=== PATIENT | male | born 1940 | race American Indian/Alaskan Native ===

== ENCOUNTER 2016-11-26 09:55 | Outpatient (CLI) | payer MEDICARE ==
--- NOTE | 2016-11-26 11:11 | XRay Report ---
ROUTINE CHEST, TWO VIEWS: HISTORY: Wheezing. Previous CABG changes are noted. The trachea, heart, mediastinal contour, lung mcarthur and bony thorax are unremarkable. IMPRESSION: Unremarkable chest x-ray.
== END 2016-11-26 09:56 | disposition home or self-care (01) ==
LOC: SPVIMAG 09:55
DX: R06.2 Wheezing (principal); Z95.1 Presence of aortocoronary bypass graft
CPT/HCPCS: 71020

== ENCOUNTER 2019-02-05 07:38 | Day surgery (SDC) | payer MEDICARE ==
[2019-02-05 08:33] LABS: Basophils % (Auto) 0.8 % (0.0-1.8); Eosinophils # (Auto) 0.1 K/mm3 (0.0-0.4); Eosinophils % (Auto) 2.8 % (0.0-4.3); Hematocrit 28.9 % (35.5-45.6); Lymphocytes # (Auto) 0.9 K/mm3 (1.2-5.4); Lymphocytes % (Auto) 17.7 % (13.4-35.0); Mean Corpuscular HGB Conc 31 % (32-34); Mean Corpuscular Volume 78 fl (84-94); Monocytes # (Auto) 0.5 K/mm3 (0.0-0.8); Monocytes % (Auto) 10.7 % (0.0-7.3); Platelet Count 200 K/mm3 (140-440); Red Blood Count 3.69 M/mm3 (3.65-5.03); Red Cell Distribution Width 17.1 % (13.2-15.2)
[2019-02-05 08:44] LABS: Calcium 8.8 mg/dL (8.4-10.2)
[2019-02-05] MEDS ORDERED: NACL 0.9% 500 ML 500 ML IV SCH (09:00)
[2019-02-05] MEDS ORDERED: HEPARIN/NS 5000 UNIT/500ML(CATH LAB) 1,000 ML IR ONE (09:43)
[2019-02-05] MEDS ORDERED: CALAN ONE (09:43)
[2019-02-05] MEDS ORDERED: NITROGLYCERIN SYRINGE 0 ML ONE (09:43)
[2019-02-05] MEDS ORDERED: HEPARIN 10,000 UNITS/10 ML ONE (09:43)
[2019-02-05] MEDS: VERSED ONE ×3 (10:15→10:28)
[2019-02-05] MEDS: SUBLIMAZE ONE ×2 (10:15→10:24)
[2019-02-05] MEDS: XYLOCAINE 2% INFILTRATI ONE ×2 (10:15→10:28)
[2019-02-05] MEDS ORDERED: APRESOLINE ONE (10:53)
[2019-02-05] MEDS ORDERED: NACL 0.9% 1000 ML 1,000 ML ONE (11:11)
--- NOTE | 2019-02-05 11:47 | Short Stay Summary ---
Short Stay Documentation Date of service: 02/05/19 - History H&P: obtained from office - Allergies and Medications Current Medications: Allergies No Known Allergies Allergy (Verified 02/05/19 08:04) Home Medications Medication Instructions Recorded Confirmed Last Taken Type Atorvastatin [Lipitor] 40 mg PO DAILY 02/05/19 02/05/19 02/04/19 History 40mg Cilostazol [Pletal] 100 mg PO BID 02/05/19 02/05/19 02/04/19 History 100mg Clopidogrel [Plavix] 75 mg PO DAILY 02/05/19 02/05/19 02/04/19 History 75mg Furosemide [Lasix TAB] 20 mg PO DAILY 02/05/19 02/05/19 02/04/19 History 20mg Losartan [Cozaar] 25 mg PO DAILY 02/05/19 02/05/19 02/04/19 History 25mg Metoprolol Xl [Metoprolol 50 mg PO DAILY 02/05/19 02/05/19 02/04/19 History SUCCINATE ER TAB] 50mg Pantoprazole [Protonix TAB] 40 mg PO DAILY 02/05/19 02/05/19 02/04/19 History 40mg Potassium Chloride [Klor-Con 8] 10 meq PO DAILY 02/05/19 02/05/19 02/04/19 History 10meq Tamsulosin [Flomax] 0.4 mg PO DAILY 02/05/19 02/05/19 02/04/19 History 0.4mg Active Medications Sodium Chloride (Nacl 0.9% 500 Ml) 500 mls @ 50 mls/hr IV DIRECT MARIANA Stop: 02/05/19 18:59 Last Admin: 02/05/19 08:30 Dose: 50 mls/hr Documented by: - Physical exam General appearance: no acute distress Integumentary: no rash HEENT: Atraumatic Lungs: Clear to auscultation Breasts: deferred Heart: Regular rate Gastrointestinal: normal Male Genitourinary: deferred Female Genitourinary: deferred Rectal Exam: deferred Extremities: no ischemia Neurological: Normal gait - Brief post op/procedure progress note Date of procedure: 02/05/19 Pre-op diagnosis: Cardiac clearance Post-op diagnosis: same Procedure: LHC, SVG to OM, SVG to Diag, MILIAN to LAD, Ascending aortogram Anesthesia: MAC Findings: See report Surgeon: MARCIO EATON Estimated blood loss: none Pathology: none Condition: stable - Hospital course Hospital course: Uneventful - Disposition Condition at discharge: Good Disposition: DC-[id number] TO HOME OR SELFCARE Short Stay Discharge Plan Activity: no driving until cleared by PCP (for 2 days) Weight Bearing Status: Non-Weight Bearing (for 2 days) Diet: low fat, low cholesterol, low salt Wound: keep clean and dry Follow up with: MONIQUE CABRALES MD, PHD [Primary Care Provider] - 7 Days
--- NOTE | 2019-02-05 14:03 | Cardiac Catherization Report ---
LEFT HEART CATHETERIZATION ORDERING PHYSICIAN: Pedro Riojas MD INDICATIONS FOR PROCEDURE: Preoperative cardiac clearance and abnormal myocardial perfusion scan revealing a reversible mid and basal anterior wall defect. PROCEDURES PERFORMED: 1. Selective left and right coronary angiography. 2. Selective angiography of the saphenous vein graft to the diagonal artery. 3. Selective angiography of the saphenous vein graft to the obtuse marginal. 4. Selective angiography of the MILIAN graft to the LAD. 5. Ascending aortography. 6. The left ventriculogram was not performed due to the patient's underlying renal insufficiency. DESCRIPTION OF PROCEDURE: After obtaining written consent, the patient was draped using sterile technique. A 2% lidocaine was injected into the right groin. A 5-Russian vascular sheath was inserted into the right femoral artery using the micropuncture technique. A 5-Russian JL4 catheter was used to selectively engage the left coronary artery. A 5-Russian JR4 catheter was used to selectively engage the saphenous vein graft to the diagonal artery. A 5-Russian JR4 catheter was used to selectively engage the saphenous vein graft to the obtuse marginal artery. A 5-Russian JR4 catheter was used to selectively engage the MILIAN graft to the LAD. A 5-Russian 3DRC catheter was used to selectively engage the solomon right coronary artery. A left ventriculogram was not performed due to the patient's underlying renal insufficiency. A pigtail catheter was used to perform an ascending aortogram. Total contrast administered was 140 mL. No complications occurred during the procedure. ESTIMATED BLOOD LOSS: Minimal. SPECIMEN REMOVED: None. Hemostasis was achieved at the end of the procedure using manual pressure. Total sedation administered was 2 mg of IV Versed and 50 mcg of IV fentanyl. Physician and patient [id number] sedation start time, 10:24 a.m. Physician and patient [id number] sedation stop time, 10:55 a.m. Total sedation time is 31 minutes. FINDINGS: HEMODYNAMICS: Aortic pressure 157/73, LV systolic pressure 157 mmHg, LV end diastolic pressure 27 mmHg. CARDIAC STRUCTURES: The left ventriculogram was not performed due to the patient's underlying renal insufficiency and aortogram was performed revealing no significant aortic regurgitation and a normal size aortic root and ascending aorta. CORONARY ANATOMY: 1. This is a right dominant circulation. 2. The left main has evidence of mild disease noted distally. 3. The left anterior descending artery is 100% occluded in the mid segment. There is a small sized first diagonal artery that is noted to be patent with mild diffuse disease. 4. The left circumflex artery exhibits evidence of an 80% focal stenosis in the proximal segment right at the takeoff a large first obtuse marginal. The solomon circumflex distally as well as the AV groove vessel are small in caliber and severely diffusely diseased. 5. The right coronary artery is a dominant vessel. There is a 90% focal stenosis in the proximal right coronary artery followed by a long severely diseased segment and 100% occlusion of the mid right coronary artery. The distal right coronary artery fills via faint collaterals from the left circulation. 6. The saphenous vein graft to the second diagonal artery is patent with good distal vessel runoff. 7. The saphenous vein graft to the obtuse marginal is occluded. 8. The MILIAN graft to the LAD is patent. The distal LAD runoff vessel, however, exhibits evidence of a focal 80% stenosis in the very distal segment. IMPRESSION: 1. 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 The MILIAN to the LAD is patent, yet the distal runoff vessel exhibits a focal 80% stenosis in the very distal segment. The saphenous vein graft to the second diagonal artery is patent with good distal vessel runoff. 2. There is an 80% stenosis in the proximal circumflex at the takeoff of the first obtuse marginal, which is a large caliber vessel. The saphenous vein graft to the obtuse marginal is occluded. 3. The right coronary artery was not bypassed. Faint collaterals are noted supplying the distal right coronary artery via the left circulation. 4. A left ventriculogram was not performed due to the underlying renal insufficiency. 5. LVEDP measured at 27 mmHg. 6. The max contrast allowed was 190 mL. The total contrast administered was 140 mL. RECOMMENDATIONS: 1. Recheck renal function upon followup with primary associate professor of law. 2. Recheck and monitor hemoglobin and hematocrit. Hemoglobin was noted to be decreased at 9.0 compared to a normal hemoglobin 2 years ago. The patient denies any source of bleeding, yet cannot rule out a potential occult gastrointestinal bleeding source given his history of large polyps. 3. In the absence of chest pain and/or angina symptoms and based on the perfusion defect location noted on MPI, one may consider treating the 80% circumflex stenosis medically. However, if symptoms do occur and/or large area of ischemia is noted in the circumflex artery distribution, PCI to the circumflex artery would be warranted in this situation. However, it would be prudent to exclude any occult bleeding source prior to coronary intervention. The patient was also strongly advised against smoking. JOB# [id number] SANDEE/KIRTI
[2019-02-05 17:09] VITALS: BP 142/70
== END 2019-02-05 16:30 | disposition home or self-care (01) ==
LOC: CATHLABREC 07:38
PROVIDERS: ATTEND Internal Medicine
DX: I25.119 Atherosclerotic heart disease of native coronary artery with unspecified angina pectoris (principal); E78.00 Pure hypercholesterolemia, unspecified; J44.9 Chronic obstructive pulmonary disease, unspecified; F17.210 Nicotine dependence, cigarettes, uncomplicated; Z79.01 Long term (current) use of anticoagulants; Z98.49 Cataract extraction status, unspecified eye; Z95.1 Presence of aortocoronary bypass graft; Z85.46 Personal history of malignant neoplasm of prostate; Z98.890 Other specified postprocedural states; Z79.899 Other long term (current) drug therapy; Z86.73 Personal history of transient ischemic attack (TIA), and cerebral infarction without residual deficits
CPT/HCPCS: 36415; 80048; 85025; 85610; 85730; 93005; 93010; 93459; 93567; 96360; 96361; 99156; 99157; J0360; J1644; J2250; J3010; J7030; J7040; Q9967